=== PATIENT | male | born 1985 | race American Indian/Alaskan Native ===

== ENCOUNTER 2017-12-20 14:33 | Emergency (ER) | payer BC, OTHER ==
[2017-12-20 14:42] VITALS: BP 125/78
[2017-12-20] MEDS ORDERED: DUONEB *Not for PRN Use IH ONE (14:42)
--- NOTE | 2017-12-20 16:09 | XRay Report ---
FINAL REPORT EXAM: XR CHEST ROUTINE 2V HISTORY: Difficulty breathing TECHNIQUE: Frontal and lateral views of the chest. PRIORS: None currently available. FINDINGS: Cardiac silhouette is within normal limits. There is no effusion. There is no pneumothorax. There is no consolidation. There are no suspicious osseous lesions. IMPRESSION: No acute cardiopulmonary findings.
--- NOTE | 2017-12-20 16:38 | Emergency Department Report ---
ED Shortness of Breath HPI - General Chief Complaint: Dyspnea/Respdistress Stated Complaint: SOB Time Seen by Provider: 12/20/17 16:23 Source: patient Mode of arrival: Ambulatory Limitations: No Limitations - History of Present Illness Initial Comments: 32-year-old male with a past medical history of bronchitis presents to the hospital with complaints of shortness of breath and really since yesterday. Patient last uses an inhaler 6 months ago. He has a dry cough. He denies fever or pain. He received a nebulized treatment prior to my evaluation reports improvement in symptoms. Patient does smoke cigarettes on occasion. - Related Data Previous Rx's Medication Instructions Recorded Last Taken Type ALBUTEROL Inhaler [ProAir HFA 2 puff IH QID PRN #1 inhalation 12/20/17 Unknown Rx Inhaler] ALBUTEROL NEB's [Proventil 0.083% 2.5 mg IH TID PRN #30 neb 12/20/17 Unknown Rx NEBS] Allergies Allergy/AdvReac Type Severity Reaction Status Date / Time No Known Allergies Allergy Verified 06/11/13 02:16 ED Review of Systems ROS: Stated complaint: SOB Other details as noted in HPI Comment: All other systems reviewed and negative ED Past Medical Hx - Past Medical History Hx Asthma: Yes Additional medical history: bronchitis in - Surgical History Past Surgical History?: No - Social History Smoking Status: Current Every Day Smoker Substance Use Type: None - Medications Home Medications: Home Medications Medication Instructions Recorded Confirmed Last Taken Type ALBUTEROL Inhaler [ProAir HFA 2 puff IH QID PRN #1 inhalation 12/20/17 Unknown Rx Inhaler] ALBUTEROL NEB's [Proventil 0.083% 2.5 mg IH TID PRN #30 neb 12/20/17 Unknown Rx NEBS] ED Physical Exam - General Limitations: No Limitations - Other Other exam information: General: No limitations, patient is alert in no acute distress Head exam: Atraumatic, normocephalic Eyes exam: Normal appearance ENT: Moist mucous membrane, normal oropharynx Neck exam: Normal inspection, full range of motion, no meningismus nontender Respiratory exam: Minimal end expiratory wheeze, no accessory muscle use or tachypnea Cardiovascular: Normal rate and rhythm, normal heart sounds Abdomen: Soft, nondistended, and nontender, with normal bowel sounds, no rebound, or guarding Extremity: Full range of motion normal inspection no deformity, no calf tenderness or edema Back: Normal Inspection, full range of motion, no tenderness Neurologic: Alert, oriented x3, cranial nerves intact, no motor or sensory deficit Psychiatric: normal affect, normal mood Skin: Warm, dry, intact ED Course Vital Signs 12/20/17 14:38 Temperature 98.2 F Pulse Rate 67 Respiratory 16 Rate Blood Pressure 125/78 O2 Sat by Pulse 97 Oximetry ED Medical Decision Making - Radiology Data Radiology results: report reviewed FINAL REPORT EXAM: XR CHEST ROUTINE 2V HISTORY: Difficulty breathing TECHNIQUE: Frontal and lateral views of the chest. PRIORS: None currently available. FINDINGS: Cardiac silhouette is within normal limits. There is no effusion. There is no pneumothorax. There is no consolidation. There are no suspicious osseous lesions. IMPRESSION: No acute cardiopulmonary findings. - Medical Decision Making Patient states he has a history of asthma or bronchitis. When he had exacerbation today he did not have any bronchodilators Symptoms improved in the ED after duoneb chest x-ray negative Patient will be discharged with follow-up - Differential Diagnosis bronchitis, pneumonia, asthma Critical Care Time: No Critical care attestation.: If time is entered above; I have spent that time in minutes in the direct care of this critically ill patient, excluding procedure time. ED Disposition Clinical Impression: Asthma exacerbation Disposition: DC-01 TO HOME OR SELFCARE Is pt being admited?: No Does the pt Need Aspirin: No Condition: Stable Instructions: Asthma (ED) Additional Instructions: Take the medication as prescribed. Follow up with your doctor. Return if symptoms worsen as indicated by your discharge instructions Prescriptions: ALBUTEROL Inhaler [ProAir HFA Inhaler] 2 puff IH QID PRN #1 inhalation PRN Reason: Shortness Of Breath ALBUTEROL NEB's [Proventil 0.083% NEBS] 2.5 mg IH TID PRN #30 neb PRN Reason: Wheezing Referrals: [facility] [place] [Provider Group] - 3-5 Days (Primary care clinic) FORREST SANDOVAL MD [Staff Physician] - 3-5 Days (Primary care doctor) Time of Disposition: 16:38
== END 2017-12-20 17:05 | disposition home or self-care (01) ==
LOC: ED 14:33
DX: J45.901 Unspecified asthma with (acute) exacerbation (principal); F17.210 Nicotine dependence, cigarettes, uncomplicated
CPT/HCPCS: 71046; 99283

== ENCOUNTER 2018-12-14 03:31 | Emergency (ER) | payer SELFPAY ==
[2018-12-14 04:10] LABS: Hematocrit 46.6 % (35.5-45.6); Hemoglobin 15.3 gm/dl (11.8-15.2); Mean Corpuscular HGB Conc 33 % (32-34); Mean Corpuscular Volume 89 fl (84-94); Platelet Count 201 K/mm3 (140-440); Red Blood Count 5.26 M/mm3 (3.65-5.03); Red Cell Distribution Width 13.6 % (13.2-15.2)
[2018-12-14 04:28] LABS: BUN/Creatinine Ratio 13; Blood Urea Nitrogen 14 mg/dL (9-20); Calcium 9.2 mg/dL (8.4-10.2); Hemolysis Index 12
--- NOTE | 2018-12-14 04:29 | XRay Report ---
CHEST 1 VIEW INDICATION: Chest Pain. COMPARISON: 03/12/2018 FINDINGS: Support devices: None. Heart: Within normal limits. Lungs/Pleura: No acute air space or interstitial disease. Additional findings: None. IMPRESSION: 1. No acute findings. Signer Name: Jeremiah Umaña MD Signed: 12/14/2018 4:25 AM Workstation Name: [id number]
[2018-12-14 05:02] LABS: Basophils % (Manual) 0 % (0.0-1.8); Eosinophils % (Manual) 0 % (0.0-4.3); Total Cells Counted 100
[2018-12-14 05:03] LABS: Anisocytosis Few; Ovalocytes Rare; Platelet Estimate Consistent w Auto
[2018-12-14] MEDS ORDERED: PROVENTIL IH STA (07:27)
[2018-12-14] MEDS ORDERED: DELTASONE PO STA (07:27)
--- NOTE | 2018-12-14 07:46 | Emergency Department Report ---
ED Asthma HPI - General Chief Complaint: Chest Pain Stated Complaint: SOB Time Seen by Provider: 12/14/18 07:23 Source: patient Mode of arrival: Ambulatory Limitations: No Limitations - History of Present Illness MD Complaint: shortness of breath, wheezing -: Gradual, days(s) Severity: mild Context: ran out of meds Associated Symptoms: dry cough - Related Data Previous Rx's Medication Instructions Recorded Last Taken Type ALBUTEROL NEB's [Proventil 0.083% 2.5 mg IH Q4HRT PRN #30 nebu 03/14/18 Unknown Rx NEBS] Azithromycin [Zithromax TAB] 500 mg PO QDAY #2 tablet 03/14/18 Unknown Rx Montelukast [Singulair] 10 mg PO QHS #30 tablet 03/14/18 Unknown Rx predniSONE [Deltasone] 50 mg PO QDAY #5 tab 03/14/18 Unknown Rx ALBUTEROL Inhaler (OR & NICU) 2 puff IH QID PRN #1 inhalation 03/16/18 Unknown Rx [ProAir HFA Inhaler] ALBUTEROL Inhaler (OR & NICU) 1 puff IH Q4-6H PRN #1 inha 12/14/18 Unknown Rx [ProAir HFA Inhaler] Montelukast [Singulair] 10 mg PO QPM #14 tablet 12/14/18 Unknown Rx predniSONE [Deltasone] 50 mg PO QDAY #5 tab 12/14/18 Unknown Rx Allergies Allergy/AdvReac Type Severity Reaction Status Date / Time No Known Allergies Allergy Verified 06/11/13 02:16 ED Review of Systems ROS: Stated complaint: SOB Other details as noted in HPI Comment: All other systems reviewed and negative ED Past Medical Hx - Past Medical History Previous Medical History?: Yes Hx Congestive Heart Failure: No Hx Diabetes: No Hx Asthma: Yes Hx COPD: No Additional medical history: bronchitis in - Surgical History Past Surgical History?: No - Social History Smoking Status: Current Some Day Smoker Substance Use Type: None - Medications Home Medications: Home Medications Medication Instructions Recorded Confirmed Last Taken Type ALBUTEROL NEB's [Proventil 0.083% 2.5 mg IH Q4HRT PRN #30 nebu 03/14/18 Unknown Rx NEBS] Azithromycin [Zithromax TAB] 500 mg PO QDAY #2 tablet 03/14/18 Unknown Rx Montelukast [Singulair] 10 mg PO QHS #30 tablet 03/14/18 Unknown Rx predniSONE [Deltasone] 50 mg PO QDAY #5 tab 03/14/18 Unknown Rx ALBUTEROL Inhaler (OR & NICU) 2 puff IH QID PRN #1 inhalation 03/16/18 Unknown Rx [ProAir HFA Inhaler] ALBUTEROL Inhaler (OR & NICU) 1 puff IH Q4-6H PRN #1 inha 12/14/18 Unknown Rx [ProAir HFA Inhaler] Montelukast [Singulair] 10 mg PO QPM #14 tablet 12/14/18 Unknown Rx predniSONE [Deltasone] 50 mg PO QDAY #5 tab 12/14/18 Unknown Rx ED Physical Exam - General Limitations: No Limitations General appearance: alert, in no apparent distress - Head Head exam: Present: atraumatic, normocephalic - Eye Eye exam: Present: normal appearance - ENT ENT exam: Present: mucous membranes moist - Neck Neck exam: Present: normal inspection - Respiratory Respiratory exam: Present: normal lung sounds bilaterally, wheezes. Absent: respiratory distress, chest wall tenderness, accessory muscle use, decreased breath sounds - Cardiovascular Cardiovascular Exam: Present: regular rate, normal rhythm. Absent: systolic murmur, diastolic murmur, rubs, gallop - GI/Abdominal GI/Abdominal exam: Present: soft, normal bowel sounds - Rectal Rectal exam: Present: deferred - Extremities Exam Extremities exam: Present: normal inspection - Back Exam Back exam: Present: normal inspection - Neurological Exam Neurological exam: Present: alert, oriented X3 - Psychiatric Psychiatric exam: Present: normal affect, normal mood - Skin Skin exam: Present: warm, dry, intact, normal color. Absent: rash ED Course Vital Signs 12/14/18 03:38 Temperature 98.3 F Pulse Rate 68 Respiratory 20 Rate Blood Pressure 120/80 O2 Sat by Pulse 95 Oximetry ED Medical Decision Making - Lab Data Result diagrams: 12/14/18 03:44 12/14/18 03:44 Critical care attestation.: If time is entered above; I have spent that time in minutes in the direct care of this critically ill patient, excluding procedure time. ED Disposition Clinical Impression: Asthma Disposition: DC-01 TO HOME OR SELFCARE Is pt being admited?: No Does the pt Need Aspirin: No Condition: Stable Instructions: Asthma (ED), Reactive Airways Disease (ED) Prescriptions: predniSONE [Deltasone] 50 mg PO QDAY #5 tab ALBUTEROL Inhaler (OR & NICU) [ProAir HFA Inhaler] 1 puff IH Q4-6H PRN #1 inha PRN Reason: Cough Montelukast [Singulair] 10 mg PO QPM #14 tablet Referrals: CRYSTAL JULES MD [Primary Care Provider] - 2-3 Days
[2018-12-14 08:34] VITALS: BP 124/81
== END 2018-12-14 08:32 | disposition home or self-care (01) ==
LOC: ED 03:31
DX: J45.909 Unspecified asthma, uncomplicated (principal); F17.200 Nicotine dependence, unspecified, uncomplicated; Z79.899 Other long term (current) drug therapy
CPT/HCPCS: 36415; 71045; 80048; 84484; 85007; 85025; 93005; 93010; 94640; 99284; J7512; 94644

== ENCOUNTER 2019-03-23 07:23 | Emergency (ER) | payer SELFPAY ==
[2019-03-23 07:33] VITALS: BP 112/73
[2019-03-23] MEDS ORDERED: IPRATROPIUM/ALBUTEROL SULFATE 3 ML AMPUL.NEB IH ONE (09:33)
[2019-03-23] MEDS ORDERED: predniSONE 20 MG TAB PO ONE (09:33)
[2019-03-23] MEDS ORDERED: IBUPROFEN 800 MG TAB PO ONE (09:34)
[2019-03-23] MEDS ORDERED: CYCLOBENZAPRINE 10 MG TAB PO ONE (09:34)
[2019-03-23] MEDS ORDERED: DOXYCYCLINE 100 MG CAPSULE PO ONE (09:34)
--- NOTE | 2019-03-23 09:42 | Emergency Department Report ---
ED Asthma HPI - General Chief Complaint: Upper Respiratory Infection Stated Complaint: FRANCESCO, BACK PAIN Time Seen by Provider: 03/23/19 09:22 Source: patient Mode of arrival: Ambulatory Limitations: No Limitations - History of Present Illness Initial Comments: Mr. Stephen is a 33 yo male with hx of bronchitis, childhood asthma and tobacco use who presents with nonproductive cough, wheezing, and shortness of breath. Several days of symptoms. Does not have a PCP. Recently ran out of albuterol nebulizer solution. Denies fever, chest pain. Has had several months of mild lower back pain. He performs manual labor at work. Desires pain medication for back pain. Over the past 6 years has had 7 visits to this ED for respiratory symptoms. Admitted Mar 2018 for FRANCESCO. MD Complaint: "asthma attack", shortness of breath, wheezing -: Gradual, days(s) (3) Asthma History: childhood onset, history of prior ED visit Severity: mild Context: ran out of meds, smoke exposure Associated Symptoms: dry cough - Related Data Previous Rx's Medication Instructions Recorded Last Taken Type ALBUTEROL NEB's [Proventil 0.083% 2.5 mg IH Q4HRT PRN #30 nebu 03/14/18 Unknown Rx NEBS] Azithromycin [Zithromax TAB] 500 mg PO QDAY #2 tablet 03/14/18 Unknown Rx Montelukast [Singulair] 10 mg PO QHS #30 tablet 03/14/18 Unknown Rx predniSONE [Deltasone] 50 mg PO QDAY #5 tab 03/14/18 Unknown Rx ALBUTEROL Inhaler (OR & NICU) 2 puff IH QID PRN #1 inhalation 03/16/18 Unknown Rx [ProAir HFA Inhaler] ALBUTEROL Inhaler (OR & NICU) 1 puff IH Q4-6H PRN #1 inha 12/14/18 Unknown Rx [ProAir HFA Inhaler] ALBUTEROL NEB's [Proventil 0.083% 2.5 mg IH Q4HR PRN #30 neb 12/14/18 Unknown Rx NEBS] Montelukast [Singulair] 10 mg PO QPM #14 tablet 12/14/18 Unknown Rx predniSONE [Deltasone] 50 mg PO QDAY #5 tab 12/14/18 Unknown Rx ALBUTEROL Inhaler (OR & NICU) 2 puff IH QID PRN #8.5 gram 03/23/19 Unknown Rx [ProAir HFA Inhaler] ALBUTEROL NEB's [Proventil 0.083% 2.5 mg IH TID PRN #1 box 03/23/19 Unknown Rx NEBS] Cyclobenzaprine [Flexeril] 10 mg PO TID PRN #15 tablet 03/23/19 Unknown Rx DOXYCYCLINE Hyclate [Vibramycin 100 mg PO Q12HR 7 Days #14 capsule 03/23/19 Unknown Rx CAP] predniSONE [Deltasone] 3 mg PO QDAY 3 Days #9 tab 03/23/19 Unknown Rx Allergies Allergy/AdvReac Type Severity Reaction Status Date / Time No Known Allergies Allergy Verified 06/11/13 02:16 ED Review of Systems ROS: Stated complaint: FRANCESCO, BACK PAIN Other details as noted in HPI Comment: All other systems reviewed and negative Constitutional: denies: fever, malaise Respiratory: cough, shortness of breath, wheezing Cardiovascular: denies: chest pain Gastrointestinal: denies: abdominal pain Musculoskeletal: back pain (for several months low central strain) ED Past Medical Hx - Past Medical History Previous Medical History?: Yes Hx Congestive Heart Failure: No Hx Diabetes: No Hx Asthma: Yes Hx COPD: No Additional medical history: bronchitis in - Surgical History Past Surgical History?: No - Social History Smoking Status: Current Every Day Smoker Substance Use Type: Alcohol - Medications Home Medications: Home Medications Medication Instructions Recorded Confirmed Last Taken Type ALBUTEROL NEB's [Proventil 0.083% 2.5 mg IH Q4HRT PRN #30 nebu 03/14/18 Unknown Rx NEBS] Azithromycin [Zithromax TAB] 500 mg PO QDAY #2 tablet 03/14/18 Unknown Rx Montelukast [Singulair] 10 mg PO QHS #30 tablet 03/14/18 Unknown Rx predniSONE [Deltasone] 50 mg PO QDAY #5 tab 03/14/18 Unknown Rx ALBUTEROL Inhaler (OR & NICU) 2 puff IH QID PRN #1 inhalation 03/16/18 Unknown Rx [ProAir HFA Inhaler] ALBUTEROL Inhaler (OR & NICU) 1 puff IH Q4-6H PRN #1 inha 12/14/18 Unknown Rx [ProAir HFA Inhaler] ALBUTEROL NEB's [Proventil 0.083% 2.5 mg IH Q4HR PRN #30 neb 12/14/18 Unknown Rx NEBS] Montelukast [Singulair] 10 mg PO QPM #14 tablet 12/14/18 Unknown Rx predniSONE [Deltasone] 50 mg PO QDAY #5 tab 12/14/18 Unknown Rx ALBUTEROL Inhaler (OR & NICU) 2 puff IH QID PRN #8.5 gram 03/23/19 Unknown Rx [ProAir HFA Inhaler] ALBUTEROL NEB's [Proventil 0.083% 2.5 mg IH TID PRN #1 box 03/23/19 Unknown Rx NEBS] Cyclobenzaprine [Flexeril] 10 mg PO TID PRN #15 tablet 03/23/19 Unknown Rx DOXYCYCLINE Hyclate [Vibramycin 100 mg PO Q12HR 7 Days #14 capsule 03/23/19 Unknown Rx CAP] predniSONE [Deltasone] 3 mg PO QDAY 3 Days #9 tab 03/23/19 Unknown Rx ED Physical Exam - General Limitations: No Limitations General appearance: alert, in no apparent distress, other (calm, semiupright, speaking full word sentences) - Head Head exam: Present: atraumatic, normocephalic - Eye Eye exam: Present: normal appearance - ENT ENT exam: Present: mucous membranes moist - Neck Neck exam: Present: normal inspection, full ROM - Respiratory Respiratory exam: Present: normal lung sounds bilaterally. Absent: respiratory distress, wheezes, rales, rhonchi - Cardiovascular Cardiovascular Exam: Present: regular rate, normal rhythm, normal heart sounds. Absent: systolic murmur, diastolic murmur, rubs, gallop - GI/Abdominal GI/Abdominal exam: Present: soft, normal bowel sounds. Absent: distended, tenderness, guarding, rebound - Rectal Rectal exam: Present: deferred - Extremities Exam Extremities exam: Present: normal inspection - Back Exam Back exam: Present: normal inspection, full ROM. Absent: tenderness, CVA tenderness (R), CVA tenderness (L), muscle spasm, paraspinal tenderness, vertebral tenderness, rash noted - Neurological Exam Neurological exam: Present: alert, oriented X3 - Psychiatric Psychiatric exam: Present: normal affect, normal mood - Skin Skin exam: Present: warm, dry, intact, normal color. Absent: rash ED Course Vital Signs 03/23/19 07:29 Temperature 97.8 F Pulse Rate 76 Respiratory 18 Rate Blood Pressure 112/73 O2 Sat by Pulse 96 Oximetry ED Medical Decision Making - Medical Decision Making Mr. Stephen presents with mild asthma exacerbation Rx: Albuterol nebulizer solution, albuterol MDI, prednisone and doxycycline strongly recommended smoking cessation refer to outside clinic. mild low back strain for several months: neurologically intact, no leg weakness, normal gait, mild symptoms, no hx of trauma or drug abuse rx: flexeril Critical care attestation.: If time is entered above; I have spent that time in minutes in the direct care of this critically ill patient, excluding procedure time. ED Disposition Clinical Impression: Acute asthma exacerbation Disposition: DC-01 TO HOME OR SELFCARE Is pt being admited?: No Does the pt Need Aspirin: No Condition: Stable Instructions: Asthma (ED), How to Stop Smoking (ED) Prescriptions: predniSONE [Deltasone] 3 mg PO QDAY 3 Days #9 tab Cyclobenzaprine [Flexeril] 10 mg PO TID PRN #15 tablet PRN Reason: Muscle Spasm ALBUTEROL Inhaler (OR & NICU) [ProAir HFA Inhaler] 2 puff IH QID PRN #8.5 gram PRN Reason: Shortness Of Breath ALBUTEROL NEB's [Proventil 0.083% NEBS] 2.5 mg IH TID PRN #1 box PRN Reason: Wheezing DOXYCYCLINE Hyclate [Vibramycin CAP] 100 mg PO Q12HR 7 Days #14 capsule Referrals: [facility] [Outside] - 3-5 Days Forms: Work/School Release Form(ED)
== END 2019-03-23 10:18 | disposition home or self-care (01) ==
LOC: ED 07:23
DX: J45.901 Unspecified asthma with (acute) exacerbation (principal); F17.200 Nicotine dependence, unspecified, uncomplicated; Z98.890 Other specified postprocedural states
CPT/HCPCS: 94640; 99283; J7512; 94644

== ENCOUNTER 2019-09-16 19:04 | Emergency (ER) | payer SELFPAY ==
[2019-09-16] MEDS ORDERED: IPRATROPIUM/ALBUTEROL SULFATE 3 ML AMPUL.NEB IH ONE ×2 (22:17→23:56)
--- NOTE | 2019-09-16 23:07 | XRay Report ---
CHEST 2 VIEWS INDICATION / CLINICAL INFORMATION: diana. COMPARISON: 12/14/2018 FINDINGS: SUPPORT DEVICES: None. HEART / MEDIASTINUM: No significant abnormality. LUNGS / PLEURA: No significant pulmonary or pleural abnormality. .No pneumothorax. ADDITIONAL FINDINGS: No significant additional findings. IMPRESSION: 1. No acute findings. Signer Name: Keyon Smith MD Signed: 09/16/2019 11:03 PM Workstation Name: [id number]
[2019-09-16] MEDS ORDERED: diphenhydrAMINE 25 MG CAP PO STA (23:54)
[2019-09-16] MEDS ORDERED: ALBUTEROL 2.5 MG/3 ML NEBU IH STA (23:54)
[2019-09-16] MEDS ORDERED: predniSONE 50 MG TAB PO STA (23:54)
[2019-09-17] MEDS: IPRATROPIUM/ALBUTEROL SULFATE 3 ML AMPUL.NEB IH ONE
[2019-09-17 00:09] VITALS: BP 116/73
--- NOTE | 2019-09-17 00:56 | Emergency Department Report ---
ED Asthma HPI - General Chief Complaint: Dyspnea/Respdistress Stated Complaint: DIFFICULTY IN BREATHING Time Seen by Provider: 09/16/19 23:52 Source: patient Mode of arrival: Ambulatory Limitations: No Limitations - History of Present Illness MD Complaint: "asthma attack", wheezing -: Gradual Severity: similar to prior Context: ran out of meds Associated Symptoms: dry cough - Related Data Current Asthma Therapy: none Previous Rx's Medication Instructions Recorded Last Taken Type ALBUTEROL NEB's [Proventil 0.083% 2.5 mg IH Q4HRT PRN #30 nebu 03/14/18 Unknown Rx NEBS] Azithromycin [Zithromax TAB] 500 mg PO QDAY #2 tablet 03/14/18 Unknown Rx Montelukast [Singulair] 10 mg PO QHS #30 tablet 03/14/18 Unknown Rx predniSONE [Deltasone] 50 mg PO QDAY #5 tab 03/14/18 Unknown Rx Albuterol INH(or & Nicu Only) 2 puff IH QID PRN #1 inhalation 03/16/18 Unknown Rx [ProAir HFA Inhaler] ALBUTEROL NEB's [Proventil 0.083% 2.5 mg IH Q4HR PRN #30 neb 12/14/18 Unknown Rx NEBS] Albuterol INH(or & Nicu Only) 1 puff IH Q4-6H PRN #1 inha 12/14/18 Unknown Rx [ProAir HFA Inhaler] Montelukast [Singulair] 10 mg PO QPM #14 tablet 12/14/18 Unknown Rx predniSONE [Deltasone] 50 mg PO QDAY #5 tab 12/14/18 Unknown Rx ALBUTEROL NEB's [Proventil 0.083% 2.5 mg IH TID PRN #1 box 03/23/19 Unknown Rx NEBS] Albuterol INH(or & Nicu Only) 2 puff IH QID PRN #8.5 gram 03/23/19 Unknown Rx [ProAir HFA Inhaler] Cyclobenzaprine [Flexeril] 10 mg PO TID PRN #15 tablet 03/23/19 Unknown Rx DOXYCYCLINE Hyclate [Vibramycin 100 mg PO Q12HR 7 Days #14 capsule 03/23/19 Unknown Rx CAP] predniSONE [Deltasone] 3 mg PO QDAY 3 Days #9 tab 03/23/19 Unknown Rx Albuterol INH(or & Nicu Only) 2 puff IH QID PRN #1 inhalation 09/17/19 Unknown Rx [ProAir HFA Inhaler] Benzonatate [Tessalon Perles] 100 mg PO Q8HR #30 capsule 09/17/19 Unknown Rx Montelukast [Singulair] 10 mg PO QPM #14 tablet 09/17/19 Unknown Rx predniSONE [Deltasone] 50 mg PO QDAY #5 tab 09/17/19 Unknown Rx Allergies Allergy/AdvReac Type Severity Reaction Status Date / Time No Known Allergies Allergy Verified 06/11/13 02:16 ED Review of Systems ROS: Stated complaint: DIFFICULTY IN BREATHING Other details as noted in HPI Comment: All other systems reviewed and negative ED Past Medical Hx - Past Medical History Previous Medical History?: Yes Hx Congestive Heart Failure: No Hx Diabetes: No Hx Asthma: Yes Hx COPD: No Additional medical history: bronchitis in - Surgical History Past Surgical History?: No - Social History Smoking Status: Never Smoker Substance Use Type: None - Medications Home Medications: Home Medications Medication Instructions Recorded Confirmed Last Taken Type ALBUTEROL NEB's [Proventil 0.083% 2.5 mg IH Q4HRT PRN #30 nebu 03/14/18 Unknown Rx NEBS] Azithromycin [Zithromax TAB] 500 mg PO QDAY #2 tablet 03/14/18 Unknown Rx Montelukast [Singulair] 10 mg PO QHS #30 tablet 03/14/18 Unknown Rx predniSONE [Deltasone] 50 mg PO QDAY #5 tab 03/14/18 Unknown Rx Albuterol INH(or & Nicu Only) 2 puff IH QID PRN #1 inhalation 03/16/18 Unknown Rx [ProAir HFA Inhaler] ALBUTEROL NEB's [Proventil 0.083% 2.5 mg IH Q4HR PRN #30 neb 12/14/18 Unknown Rx NEBS] Albuterol INH(or & Nicu Only) 1 puff IH Q4-6H PRN #1 inha 12/14/18 Unknown Rx [ProAir HFA Inhaler] Montelukast [Singulair] 10 mg PO QPM #14 tablet 12/14/18 Unknown Rx predniSONE [Deltasone] 50 mg PO QDAY #5 tab 12/14/18 Unknown Rx ALBUTEROL NEB's [Proventil 0.083% 2.5 mg IH TID PRN #1 box 03/23/19 Unknown Rx NEBS] Albuterol INH(or & Nicu Only) 2 puff IH QID PRN #8.5 gram 03/23/19 Unknown Rx [ProAir HFA Inhaler] Cyclobenzaprine [Flexeril] 10 mg PO TID PRN #15 tablet 03/23/19 Unknown Rx DOXYCYCLINE Hyclate [Vibramycin 100 mg PO Q12HR 7 Days #14 capsule 03/23/19 Unknown Rx CAP] predniSONE [Deltasone] 3 mg PO QDAY 3 Days #9 tab 03/23/19 Unknown Rx Albuterol INH(or & Nicu Only) 2 puff IH QID PRN #1 inhalation 09/17/19 Unknown Rx [ProAir HFA Inhaler] Benzonatate [Tessalon Perles] 100 mg PO Q8HR #30 capsule 09/17/19 Unknown Rx Montelukast [Singulair] 10 mg PO QPM #14 tablet 09/17/19 Unknown Rx predniSONE [Deltasone] 50 mg PO QDAY #5 tab 09/17/19 Unknown Rx ED Physical Exam - General Limitations: No Limitations General appearance: alert, in no apparent distress - Head Head exam: Present: atraumatic, normocephalic - Eye Eye exam: Present: normal appearance, PERRL, EOMI - ENT ENT exam: Present: mucous membranes moist - Neck Neck exam: Present: normal inspection - Respiratory Respiratory exam: Present: normal lung sounds bilaterally, respiratory distress, wheezes. Absent: chest wall tenderness, accessory muscle use, decreased breath sounds - Cardiovascular Cardiovascular Exam: Present: regular rate, normal rhythm. Absent: systolic murmur, diastolic murmur, rubs, gallop - GI/Abdominal GI/Abdominal exam: Present: soft, normal bowel sounds - Rectal Rectal exam: Present: deferred - Extremities Exam Extremities exam: Present: normal inspection - Back Exam Back exam: Present: normal inspection - Neurological Exam Neurological exam: Present: alert, oriented X3 - Psychiatric Psychiatric exam: Present: normal affect, normal mood - Skin Skin exam: Present: warm, dry, intact, normal color. Absent: rash ED Course Vital Signs 09/16/19 09/16/19 09/17/19 19:27 22:16 00:08 Temperature 98.2 F Pulse Rate 63 72 54 L Respiratory 14 16 19 Rate Blood Pressure 124/86 136/85 Blood Pressure 116/73 [Right] O2 Sat by Pulse 96 95 99 Oximetry ED Medical Decision Making - Radiology Data Radiology results: report reviewed Print Report Referring Physician:ANNA Ashford Name:RICARDO SYKESPatient ID:[id number] of :[id number]:MaleAccession:[id number] Date:[id number] Status:Finalized Findings [facility] [address] [place] [address] XRay Report Signed Patient: RICARDO SYKES MR #: [id number] : 1985 Acct:[id number] Age/Sex: 34 / M ADM Date: 09/16/19 Loc: ED Attending Dr: Ordering Physician: SAPNA BIRCH Date of Service: 09/16/19 Procedure(s): XR chest routine 2V Accession Number(s): [id number] cc: SAPNA BIRCH Fluoro Time In Minutes: CHEST 2 VIEWS INDICATION / CLINICAL INFORMATION: diana. COMPARISON: 12/14/2018 FINDINGS: SUPPORT DEVICES: None. HEART / MEDIASTINUM: No significant abnormality. LUNGS / PLEURA: No significant pulmonary or pleural abnormality. .No pneumothorax. ADDITIONAL FINDINGS: No significant additional findings. IMPRESSION: 1. No acute findings. Signer Name: Keyon Smith MD Signed: 09/16/2019 11:03 PM Workstation Name: [id number] Transcribed By: SS Dictated By: Keyon Smith MD Electronically Authenticated By: Keyon Smith MD Signed Date/Time: 09/16/192302 DD/ 01 TD/TT: - Medical Decision Making No altered mental status, saddle respirations, belly breathing or other signs of impending ventilatory failure. No intubations or recent admissions to the hospital for asthma. Unlikely pneumonia, CHF, COPD, GERD Workup Review include a chest x-ray which was normal she also received steroids and albuterol Therapies: Prednisone 50 mg PO. Albuterol nebulizer Reassessment: Patient improved with albuterol and ipratropium in less than 3 hours.. Patient is ambulatory walking to the emergency department taking pictures making videos speaking in full sentences no acute distress no utilization of accessory muscles no coughing Disposition: Discharge home with return precautions. Advised to follow up with primary care physician within next 24-48 hours. Aside from this acute exacerbation patient has been well controlled on baseline home regimen. Rx short steroid course, albuterol, Singulair, Flovent Critical care attestation.: If time is entered above; I have spent that time in minutes in the direct care of this critically ill patient, excluding procedure time. ED Disposition Clinical Impression: Asthma attack Disposition: DC- TO HOME OR SELFCARE Is pt being admited?: No Does the pt Need Aspirin: No Condition: Stable Instructions: Asthma (ED) Prescriptions: predniSONE [Deltasone] 50 mg PO QDAY #5 tab Albuterol INH(or & Nicu Only) [ProAir HFA Inhaler] 2 puff IH QID PRN #1 inh alation PRN Reason: Shortness Of Breath Montelukast [Singulair] 10 mg PO QPM #14 tablet Benzonatate [Tessalon Perles] 100 mg PO Q8HR #30 capsule Referrals: ALYSE AGUSTIN MD [Staff Physician] - 3-5 Days
== END 2019-09-17 01:12 | disposition home or self-care (01) ==
LOC: ED 19:04
DX: J45.901 Unspecified asthma with (acute) exacerbation (principal); Z79.2 Long term (current) use of antibiotics; Z79.899 Other long term (current) drug therapy
CPT/HCPCS: 71046; 94640; 99283; J7512

== ENCOUNTER 2020-04-03 06:55 | Emergency (ER) | payer SELFPAY ==
[2020-04-03 07:12] VITALS: BP 128/80
[2020-04-03] MEDS ORDERED: DIPHtheria,PERTUSSIS(ACELL),TETANUS VACCINE/PF 0.5 ML VIAL IM ONE (08:13)
--- NOTE | 2020-04-03 08:15 | Emergency Department Report ---
- General Chief Complaint: Puncture Wound Stated Complaint: NAIL IN LEFT FOOT Source: patient Mode of arrival: Ambulatory Limitations: No Limitations - History of Present Illness Initial Comments: The patient was evaluated in the emergency department for symptoms described in the history of present illness. He/she was evaluated in the context of the global COVID-19 pandemic, which necessitated consideration that the patient might be at risk for infection with the virus that causes COVID-19. Institutional protocols and algorithms that pertain to the evaluation of patients at risk for COVID-19 are in a state of rapid change based on information released by regulatory bodies including the CDC and federal and state organizations. These policies and algorithms were followed during the patient's care in the emergency department. Please note that these policies, procedures and recommendations changed on a rapid basis. 34-year-old -Niue[place] male presents to the emergency room stating he stepped on a nail on his left foot this morning. Patient reports that he was at work when this happened. He states he is not up-to-date on his tetanus. Denies any past medical history denies taking any medications on a daily basis and no known drug allergies. -: This morning Extremity Location: Left: Foot (Stepped on nail) Place: work Patient Tetanus UTD: No Context: accidental Associated Symptoms: pain - Related Data Previous Rx's Medication Instructions Recorded Last Taken Type ALBUTEROL NEB's [Proventil 0.083% 2.5 mg IH Q4HRT PRN #30 nebu 03/14/18 Unknown Rx NEBS] Azithromycin [Zithromax TAB] 500 mg PO QDAY #2 tablet 03/14/18 Unknown Rx Montelukast [Singulair] 10 mg PO QHS #30 tablet 03/14/18 Unknown Rx predniSONE [Deltasone] 50 mg PO QDAY #5 tab 03/14/18 Unknown Rx Albuterol Mdi (or & Nicu Only) 2 puff IH QID PRN #1 inhalation 03/16/18 Unknown Rx [ProAir HFA Inhaler] ALBUTEROL NEB's [Proventil 0.083% 2.5 mg IH Q4HR PRN #30 neb 12/14/18 Unknown Rx NEBS] Albuterol Mdi (or & Nicu Only) 1 puff IH Q4-6H PRN #1 inha 12/14/18 Unknown Rx [ProAir HFA Inhaler] Montelukast [Singulair] 10 mg PO QPM #14 tablet 12/14/18 Unknown Rx predniSONE [Deltasone] 50 mg PO QDAY #5 tab 12/14/18 Unknown Rx ALBUTEROL NEB's [Proventil 0.083% 2.5 mg IH TID PRN #1 box 03/23/19 Unknown Rx NEBS] Albuterol Mdi (or & Nicu Only) 2 puff IH QID PRN #8.5 gram 03/23/19 Unknown Rx [ProAir HFA Inhaler] Cyclobenzaprine [Flexeril] 10 mg PO TID PRN #15 tablet 03/23/19 Unknown Rx DOXYCYCLINE Hyclate [Vibramycin 100 mg PO Q12HR 7 Days #14 capsule 03/23/19 Unkn own Rx CAP] predniSONE [Deltasone] 3 mg PO QDAY 3 Days #9 tab 03/23/19 Unknown Rx ALBUTEROL NEB's [Proventil 0.083% 2.5 mg IH TID PRN #30 neb 09/17/19 Unknown Rx NEBS] Albuterol Mdi (or & Nicu Only) 2 puff IH QID PRN #1 inhalation 09/17/19 Unknown Rx [ProAir HFA Inhaler] Benzonatate [Tessalon Perles] 100 mg PO Q8HR #30 capsule 09/17/19 Unknown Rx Montelukast [Singulair] 10 mg PO QPM #14 tablet 09/17/19 Unknown Rx predniSONE [Deltasone] 50 mg PO QDAY #5 tab 09/17/19 Unknown Rx Ibuprofen [Motrin 600 MG tab] 600 mg PO Q8H PRN #21 tablet 04/03/20 Unknown Rx cephALEXin [Keflex] 500 mg PO Q12HR 7 Days #14 cap 04/03/20 Unknown Rx Allergies Allergy/AdvReac Type Severity Reaction Status Date / Time No Known Allergies Allergy Verified 06/11/13 02:16 ED Review of Systems ROS: Stated complaint: NAIL IN LEFT FOOT Other details as noted in HPI Comment: All other systems reviewed and negative ED Past Medical Hx - Past Medical History Hx Congestive Heart Failure: No Hx Diabetes: No Hx Asthma: Yes Hx COPD: No Additional medical history: bronchitis in - Surgical History Past Surgical History?: No - Social History Smoking Status: Never Smoker Substance Use Type: None - Medications Home Medications: Home Medications Medication Instructions Recorded Confirmed Last Taken Type ALBUTEROL NEB's [Proventil 0.083% 2.5 mg IH Q4HRT PRN #30 nebu 03/14/18 Unknown Rx NEBS] Azithromycin [Zithromax TAB] 500 mg PO QDAY #2 tablet 03/14/18 Unknown Rx Montelukast [Singulair] 10 mg PO QHS #30 tablet 03/14/18 Unknown Rx predniSONE [Deltasone] 50 mg PO QDAY #5 tab 03/14/18 Unknown Rx Albuterol Mdi (or & Nicu Only) 2 puff IH QID PRN #1 inhalation 03/16/18 Unknown Rx [ProAir HFA Inhaler] ALBUTEROL NEB's [Proventil 0.083% 2.5 mg IH Q4HR PRN #30 neb 12/14/18 Unknown Rx NEBS] Albuterol Mdi (or & Nicu Only) 1 puff IH Q4-6H PRN #1 inha 12/14/18 Unknown Rx [ProAir HFA Inhaler] Montelukast [Singulair] 10 mg PO QPM #14 tablet 12/14/18 Unknown Rx predniSONE [Deltasone] 50 mg PO QDAY #5 tab 12/14/18 Unknown Rx ALBUTEROL NEB's [Proventil 0.083% 2.5 mg IH TID PRN #1 box 03/23/19 Unknown Rx NEBS] Albuterol Mdi (or & Nicu Only) 2 puff IH QID PRN #8.5 gram 03/23/19 Unknown Rx [ProAir HFA Inhaler] Cyclobenzaprine [Flexeril] 10 mg PO TID PRN #15 tablet 03/23/19 Unknown Rx DOXYCYCLINE Hyclate [Vibramycin 100 mg PO Q12HR 7 Days #14 capsule 03/23/19 Unknown Rx CAP] predniSONE [Deltasone] 3 mg PO QDAY 3 Days #9 tab 03/23/19 Unknown Rx ALBUTEROL NEB's [Proventil 0.083% 2.5 mg IH TID PRN #30 neb 09/17/19 Unknown Rx NEBS] Albuterol Mdi (or & Nicu Only) 2 puff IH QID PRN #1 inhalation 09/17/19 Unknown Rx [ProAir HFA Inhaler] Benzonatate [Tessalon Perles] 100 mg PO Q8HR #30 capsule 09/17/19 Unknown Rx Montelukast [Singulair] 10 mg PO QPM #14 tablet 09/17/19 Unknown Rx predniSONE [Deltasone] 50 mg PO QDAY #5 tab 09/17/19 Unknown Rx Ibuprofen [Motrin 600 MG tab] 600 mg PO Q8H PRN #21 tablet 04/03/20 Unknown Rx cephALEXin [Keflex] 500 mg PO Q12HR 7 Days #14 cap 04/03/20 Unknown Rx ED Physical Exam - General Limitations: No Limitations General appearance: alert, in no apparent distress - Head Head exam: Present: atraumatic, normocephalic - Eye Eye exam: Present: normal appearance - ENT ENT exam: Present: mucous membranes moist - Neck Neck exam: Present: normal inspection, full ROM - Respiratory Respiratory exam: Absent: accessory muscle use - Back Exam Back exam: Present: normal inspection - Neurological Exam Neurological exam: Present: alert, oriented X3 - Psychiatric Psychiatric exam: Present: normal affect, normal mood - Skin Skin exam: Present: warm, dry, intact, normal color. Absent: rash ED Course Vital Signs 04/03/20 07:11 Temperature 98.1 F Pulse Rate 68 Respiratory 16 Rate Blood Pressure 128/80 O2 Sat by Pulse 96 Oximetry ED Medical Decision Making - Radiology Data Radiology results: report reviewed Ordering Physician: SAPNA CERVANTES Date of Service: 04/03/20 Procedure(s): XR foot 2V LT Accession Number(s): [id number] cc: SAPNA CERVANTES Fluoro Time In Minutes: LEFT FOOT 3 VIEW(S) INDICATION / CLINICAL INFORMATION: stepped on nail COMPARISON: None available. FINDINGS: BONES / JOINT(S): No acute fracture or subluxation. Lisfranc interval is maintained. No significant arthritis. SOFT TISSUES: There is evidence of soft tissue injury with soft tissue swelling of the plantar aspect of the forefoot medially with small area of soft tissue gas. No radiopaque foreign body. ADDITIONAL FINDINGS: None. IMPRESSION: Evidence of soft tissue injury of the plantar left medial forefoot. No radiopaque foreign body or acute fracture. Signer Name: Alton Stoddard MD Signed: 04/03/2020 8:54 AM Workstation Name: [id number] Transcribed By: FRANCISCO Dictated By: ALTON STODDARD MD Electronically Authenticated By: ALTON STODDARD MD Signed Date/Time: 04/03/20853 DD/ 1 TD/TT: - Medical Decision Making 34-year-old -[place]ue[place] male presents to the emergency room stating he stepped on a nail on his left foot this morning. Patient reports that he was at work when this happened. He states he is not up-to-date on his tetanus. Denies any past medical history denies taking any medications on a daily basis and no known drug allergies. Patient is given ibuprofen for pain management, x-ray of left foot shows no abnormalities. Patient was given a tetanus shot and bandage patient is discharged home in a stable condition Critical care attestation.: If time is entered above; I have spent that time in minutes in the direct care of this critically ill patient, excluding procedure time. ED Disposition Clinical Impression: Puncture wound of foot Disposition: DC-01 TO HOME OR SELFCARE Is pt being admited?: No Does the pt Need Aspirin: No Condition: Stable Instructions: Puncture Wound Additional Instructions: Complete antibiotics as prescribed. Pain medication as needed. Keep wound clean and dry. He can follow-up with your primary care provider if you have any further concerns. Prescriptions: cephALEXin [Keflex] 500 mg PO Q12HR 7 Days #14 cap Ibuprofen [Motrin 600 MG tab] 600 mg PO Q8H PRN #21 tablet PRN Reason: Pain Referrals: [facility] [Provider Group] - 3-5 Days Forms: Work/School Release Form(ED)
[2020-04-03] MEDS ORDERED: IBUPROFEN 600 MG TAB PO ONE ×2 (08:20→08:22)
--- NOTE | 2020-04-03 08:59 | XRay Report ---
LEFT FOOT 3 VIEW(S) INDICATION / CLINICAL INFORMATION: stepped on nail COMPARISON: None available. FINDINGS: BONES / JOINT(S): No acute fracture or subluxation. Lisfranc interval is maintained. No significant a rthritis. SOFT TISSUES: There is evidence of soft tissue injury with soft tissue swelling of the plantar aspect of the forefoot medially with small area of soft tissue gas. No radiopaque foreign body. ADDITIONAL FINDINGS: None. IMPRESSION: Evidence of soft tissue injury of the plantar left medial forefoot. No radiopaque foreign body or acu te fracture. Signer Name: Fernie Bo MD Signed: 04/03/2020 8:54 AM Workstation Name: [id number]
--- NOTE | 2020-04-03 18:06 | Emergency Department Report ---
Blank Doc - Documentation Documentation: Patient has been called several times with 1 message left to call emergency room to obtain patient's pharmacy number to call in Levaquin 500 mg daily for 5 days to cover Pseudomonas of his left foot secondary to stepping on a nail with his shoe. Phone number of been calling us the one in the computer system at [phone].
== END 2020-04-03 09:50 | disposition home or self-care (01) ==
LOC: ED 06:55
DX: S91.332A Puncture wound without foreign body, left foot, initial encounter (principal); J45.909 Unspecified asthma, uncomplicated; Z79.899 Other long term (current) drug therapy; W22.8XXA Striking against or struck by other objects, initial encounter; Y93.89 Activity, other specified; Y92.89 Other specified places as the place of occurrence of the external cause; Y99.0 Civilian activity done for income or pay
CPT/HCPCS: 90471; 90715

== ENCOUNTER 2020-05-18 14:12 | Emergency (ER) | payer SELFPAY ==
[2020-05-18] MEDS ORDERED: IPRATROPIUM 0.02% NEBU 2.5 ML IH ONE ×2 (14:26→16:44)
[2020-05-18] MEDS ORDERED: methylPREDNISolone Sod Succinate 125 MG/2 ML INJ IV ONE (14:26)
[2020-05-18] MEDS ORDERED: ALBUTEROL 2.5 MG/3 ML NEBU IH ONE ×2 (14:26→16:44)
--- NOTE | 2020-05-18 14:28 | Event Note ---
ED Screening Note Date of service: 05/18/20 Time: 14:27 ED Screening Note: Patient complains of shortness of breath History of asthma and patient is a smoker Audible wheezing noted on exam Heart rate 126, pulse ox 88% with standing Low-grade fever of 99.9 This initial assessment/diagnostic orders/clinical plan/treatment(s) is/are subject to change based on patients health status, clinical progression and re- assessment by fellow clinical providers in the ED. Further treatment and workup at subsequent clinical providers discretion. Patient/guardian urged not to elope from the ED as their condition may be serious if not clinically assessed and managed. Initial orders include: Labs Chest x-ray
[2020-05-18 15:01] LABS: Basophils % (Auto) 0.4 % (0.0-1.8); Eosinophils % (Auto) 0.5 % (0.0-4.3); Hematocrit 48.1 % (35.5-45.6); Hemoglobin 15.8 gm/dl (11.8-15.2); Lymphocytes # (Auto) 1.1 K/mm3 (1.2-5.4); Lymphocytes % (Auto) 15.1 % (13.4-35.0); Mean Corpuscular HGB Conc 33 % (32-34); Mean Corpuscular Volume 88 fl (84-94); Monocytes # (Auto) 0.5 K/mm3 (0.0-0.8); Monocytes % (Auto) 7.1 % (0.0-7.3); Platelet Count 223 K/mm3 (140-440); Red Blood Count 5.47 M/mm3 (3.65-5.03); Red Cell Distribution Width 14.4 % (13.2-15.2)
[2020-05-18 15:23] LABS: Alanine Aminotransferase 32 units/L (7-56); Albumin 4.6 g/dL (3.9-5); BUN/Creatinine Ratio 15; Blood Urea Nitrogen 12 mg/dL (9-20); Calcium 9.1 mg/dL (8.4-10.2); Hemolysis Index 19
[2020-05-18] MEDS ORDERED: MAGNESIUM SULFATE 2 GM/50 ML BAG IV ONE (15:29)
--- NOTE | 2020-05-18 15:46 | Emergency Department Report ---
HPI - General Chief Complaint: Dyspnea/Respdistress Time Seen by Provider: 05/18/20 14:25 - HPI HPI: Room 37 The patient is a 34-year-old male present with a chief complaint of shortness of breath. Patient states for the past 1-2 days he has had shortness of breath as well as an occasional cough productive of yellow sputum. Patient states he thought it was his asthma but has not improved. Patient denies history of fever. Patient denies known contact with Covid positive patients ED Past Medical Hx - Past Medical History Previous Medical History?: Yes Hx Asthma: Yes Additional medical history: bronchitis in - Surgical History Past Surgical History?: No - Family History Family history: no significant - Social History Smoking Status: Current Some Day Smoker Substance Use Type: Alcohol (Occasional) - Medications Home Medications: Home Medications Medication Instructions Recorded Confirmed Last Taken Type ALBUTEROL NEB's [Proventil 0.083% 2.5 mg IH Q4HRT PRN #30 nebu 03/14/18 Unknown Rx NEBS] Azithromycin [Zithromax TAB] 500 mg PO QDAY #2 tablet 03/14/18 Unknown Rx Montelukast [Singulair] 10 mg PO QHS #30 tablet 03/14/18 Unknown Rx predniSONE [Deltasone] 50 mg PO QDAY #5 tab 03/14/18 Unknown Rx Albuterol Mdi (or & Nicu Only) 2 puff IH QID PRN #1 inhalation 03/16/18 Unknown Rx [ProAir HFA Inhaler] ALBUTEROL NEB's [Proventil 0.083% 2.5 mg IH Q4HR PRN #30 neb 12/14/18 Unknown Rx NEBS] Albuterol Mdi (or & Nicu Only) 1 puff IH Q4-6H PRN #1 inha 12/14/18 Unknown Rx [ProAir HFA Inhaler] Montelukast [Singulair] 10 mg PO QPM #14 tablet 12/14/18 Unknown Rx predniSONE [Deltasone] 50 mg PO QDAY #5 tab 12/14/18 Unknown Rx ALBUTEROL NEB's [Proventil 0.083% 2.5 mg IH TID PRN #1 box 03/23/19 Unknown Rx NEBS] Albuterol Mdi (or & Nicu Only) 2 puff IH QID PRN #8.5 gram 03/23/19 Unknown Rx [ProAir HFA Inhaler] Cyclobenzaprine [Flexeril] 10 mg PO TID PRN #15 tablet 03/23/19 Unknown Rx DOXYCYCLINE Hyclate [Vibramycin 100 mg PO Q12HR 7 Days #14 capsule 03/23/19 Unknown Rx CAP] predniSONE [Deltasone] 3 mg PO QDAY 3 Days #9 tab 03/23/19 Unknown Rx ALBUTEROL NEB's [Proventil 0.083% 2.5 mg IH TID PRN #30 neb 09/17/19 Unknown Rx NEBS] Albuterol Mdi (or & Nicu Only) 2 puff IH QID PRN #1 inhalation 09/17/19 Unknown Rx [ProAir HFA Inhaler] Benzonatate [Tessalon Perles] 100 mg PO Q8HR #30 capsule 09/17/19 Unknown Rx Montelukast [Singulair] 10 mg PO QPM #14 tablet 09/17/19 Unknown Rx predniSONE [Deltasone] 50 mg PO QDAY #5 tab 09/17/19 Unknown Rx Ibuprofen [Motrin 600 MG tab] 600 mg PO Q8H PRN #21 tablet 04/03/20 Unknown Rx cephALEXin [Keflex] 500 mg PO Q12HR 7 Days #14 cap 04/03/20 Unknown Rx Albuterol Sulfate [Albuterol 0.63% 0.63 mg IH TID PRN #90 ml 05/18/20 Unknown Rx NEBS] Albuterol Sulfate [Proventil Hfa] 6.7 gm IH QID PRN #1 hfa.aer.ad 05/18/20 Unknown Rx Azithromycin [Zithromax Z-TE] 0 mg PO DAILY #6 tab 05/18/20 Unknown Rx Prednisone [predniSONE 10 mg 10 mg PO .TAPER #1 tab.ds.pk 05/18/20 Unknown Rx (6-Day Pack, 21 Tabs)] ED Review of Systems ROS: Stated complaint: ASTHMA ATTACK Other details as noted in HPI Constitutional: denies: fever Eyes: denies: as per HPI ENT: denies: throat pain Respiratory: cough, shortness of breath, wheezing Cardiovascular: denies: chest pain Endocrine: no symptoms reported Gastrointestinal: denies: abdominal pain Genitourinary: denies: dysuria Skin: denies: lesions Neurological: denies: headache Physical Exam - Physical Exam Vital Signs: Vital Signs 05/18/20 05/18/20 14:20 14:46 Temperature 99.9 F H Pulse Rate 136 H Pulse Rate [ 118 H Anterior Bilateral Throughout] Respiratory 26 H Rate Respiratory 24 Rate [Anterior Bilateral Throughout] O2 Sat by Pulse 95 Oximetry Physical Exam: GENERAL: The patient is well-developed well-nourished male lying on stretcher receiving nebulizer if not appearing to be in acute distress. [] HEENT: Normocephalic. Atraumatic. Extraocular motions are intact. Patient has moist mucous membranes. NECK: Supple. Trachea midline CHEST/LUNGS: Audible wheezing, slightly increased work of breathing HEART/CARDIOVASCULAR: Regular. There is tachycardia. There is no gallop rub or murmur. ABDOMEN: Abdomen is soft, nontender. Patient has normal bowel sounds. There is no abdominal distention. SKIN: There is no rash. There is no edema. There is no diaphoresis. NEURO: The patient is awake, alert, and oriented. The patient is cooperative. The patient has no focal neurologic deficits. The patient has normal speech MUSCULOSKELETAL: There is no evidence of acute injury. ED Course Vital Signs 05/18/20 05/18/20 14:20 14:46 Temperature 99.9 F H Pulse Rate 136 H Pulse Rate [ 118 H Anterior Bilateral Throughout] Respiratory 26 H Rate Respiratory 24 Rate [Anterior Bilateral Throughout] O2 Sat by Pulse 95 Oximetry - Reevaluation(s) Reevaluation #1: 05/18/20 18:36 Wheezing has improved. Patient has occasional rhonchi. SPO2 94% room air ED Medical Decision Making - Lab Data Result diagrams: 05/18/20 14:46 05/18/20 14:46 Laboratory Tests 05/18/20 05/18/20 05/18/20 14:46 14:46 14:46 WBC 7.1 RBC 5.47 H Hgb 15.8 H Hct 48.1 H MCV 88 MCH 29 MCHC 33 RDW 14.4 Plt Count 223 Lymph % (Auto) 15.1 [place] % (Auto) 7.1 Eos % (Auto) 0.5 Baso % (Auto) 0.4 Lymph # (Auto) 1.1 L [place] # (Auto) 0.5 Eos # (Auto) 0.0 Baso # (Auto) 0.0 Seg Neutrophils % 76.9 H Seg Neutrophils # 5.4 Sodium 139 Potassium 4.0 Chloride 102.6 Carbon Dioxide 25 Anion Gap 15 BUN 12 Creatinine 0.8 Estimated GFR > 60 BUN/Creatinine Ratio 15 Glucose 107 H Calcium 9.1 Total Bilirubin 0.50 AST 26 ALT 32 Alkaline Phosphatase 62 Troponin T < 0.010 NT-Pro-B Natriuret Pep 5.49 Total Protein 7.2 Albumin 4.6 Albumin/Globulin Ratio 1.8 - Radiology Data Radiology results: report reviewed (Chest x-ray) Chest x-ray (read by radiologist)-no acute finding - Differential Diagnosis Acute asthma exacerbation, pneumonia, bronchitis, COVID-19 Critical care attestation.: If time is entered above; I have spent that time in minutes in the direct care of this critically ill patient, excluding procedure time. ED Disposition Clinical Impression: Acute severe exacerbation of asthma, Bronchitis Disposition: TO HOME OR SELFCARE Is pt being admited?: No Does the pt Need Aspirin: No Condition: Stable Instructions: Chronic Bronchitis (ED) Additional Instructions: Return to the emergency department should you develop worsening symptoms, inability to tolerate food or liquids, high fever or any other concerns Prescriptions: Albuterol Sulfate [Albuterol 0.63% NEBS] 0.63 mg IH TID PRN #90 ml PRN Reason: Wheezing Prednisone [predniSONE 10 mg (6-Day Pack, 21 Tabs)] 10 mg PO .TAPER #1 tab.ds.pk Albuterol Sulfate [Proventil Hfa] 6.7 gm IH QID PRN #1 hfa.aer.ad PRN Reason: Wheezing Azithromycin [Zithromax Z-TE] 0 mg PO DAILY #6 tab Referrals: PRIMARY CARE, [Primary Care Provider] - 3-5 Days [facility] [Provider Group] - 3-5 Days Time of Disposition: 18:40
--- NOTE | 2020-05-18 16:08 | XRay Report ---
CHEST 1 VIEW 05/18/2020 3:01 PM INDICATION / CLINICAL INFORMATION: Cough, shortness of breath. COMPARISON: 09/16/2019 FINDINGS: SUPPORT DEVICES: None. HEART / MEDIASTINUM: No significant abnormality. LUNGS / PLEURA: No significant pulmonary or pleural abnormality. No pneumothorax. ADDITIONAL FINDINGS: No significant additional findings. IMPRESSION: 1. No acute findings. Signer Name: New Gabriel MD Signed: 05/18/2020 4:04 PM Workstation Name: [email or web address]
== END 2020-05-18 18:55 | disposition home or self-care (01) ==
LOC: ED 14:12
DX: J45.901 Unspecified asthma with (acute) exacerbation (principal); F17.200 Nicotine dependence, unspecified, uncomplicated; Z79.899 Other long term (current) drug therapy
CPT/HCPCS: 36415; 71045; 80053; 83880; 84484; 85025; 94640; 96365; 96375; 99284; J2930; J3475; 94644